=== PATIENT | male | born 1960 | race Asian ===

== ENCOUNTER 2016-08-05 10:57 | Outpatient (CLI) | payer OTHER | END 2016-08-05 10:58 | disposition home or self-care (01) | DX: E11.9 Type 2 diabetes mellitus without complications (principal); E78.5 Hyperlipidemia, unspecified; Z79.899 Other long term (current) drug therapy ==

== ENCOUNTER 2017-10-18 08:00 | Outpatient (CLI) | payer OTHER ==
[2017-10-18 16:41] LABS: BASOPHILS % (AUTO) 0.9 %; EOSINOPHILS % (AUTO) 2.6 %; HGB - HEMOGLOBIN 13.5 g/dL (14.0-18.0); LYMPHOCYTES % (AUTO) 20.3 %; MEAN CORPUSCULAR HEMOGLOBIN 32.8 pg (27.0-31.0); MEAN CORPUSCULAR HGB CONC 33.9 g/dL (32.0-36.0); MEAN CORPUSCULAR VOLUME 96.7 fL (80.0-94.0); MEAN PLATELET VOLUME 9.2 fL (7.4-11.4); MONOCYTES % (AUTO) 7.8 %; NEUTROPHILS % (AUTO) 68.4 %; PLT - PLATELET COUNT 158 10^3/uL (130-450); RED BLOOD COUNT 4.11 10^6/uL (4.70-6.10); RED CELL DISTRIBUTION WIDTH 13.5 % (12.0-15.0); WHITE BLOOD COUNT 7.2 x10^3/uL (4.8-10.8)
[2017-10-18 16:54] LABS: ABNORMAL LYMPHS % (MANUAL) 0 %; BAND NEUTROPHILS % (MANUAL) 0 %
[2017-10-18 17:10] LABS: PSA SCREEN (Z12.5) 5.21 ng/mL (0.000-2.000)
[2017-10-18 17:16] LABS: ALBUMIN 4.6 g/dL (3.2-5.5); ALBUMIN/GLOBULIN RATIO 1.5 (1.0-2.2); ALKALINE PHOSPHATASE 86 IU/L (42-121); ALT ALANINE AMINOTRANSFERASE 72 IU/L (10-60); AST ASPARTATE AMINOTRANSFERASE 118 IU/L (10-42); BILIRUBIN,TOTAL 1.3 mg/dL (0.2-1.0); BUN - BLOOD UREA NITROGEN 13 mg/dL (6-20); CALCIUM 9.4 mg/dL (8.5-10.3); CARBON DIOXIDE - CO2 23 mmol/L (21-32); CHLORIDE 99 mmol/L (101-111); CHOL/HDL RATIO 6.1 (<5.0); CHOLESTEROL 291 mg/dL; CREATININE 1.1 mg/dL (0.6-1.2); GFR - MDRD 69 (>89); GLUCOSE 156 mg/dL (70-100); HB2 TOTAL 15.3 g/dL; HDL CHOLESTEROL 48 mg/dL; HEMOGLOBIN A1C 0.67 g/dL; HEMOGLOBIN A1C % 6.2 % (4.6-6.2); SODIUM 135 mmol/L (135-145); TOTAL PROTEIN 7.7 g/dL (6.7-8.2)
[2017-10-18 17:37] LABS: LDL CHOLESTEROL,DIRECT 114 mg/dL; LDLD/HDL RATIO 2.4 (<3.6)
[2017-10-18 18:58] LABS: BASOPHILS # (MANUAL) 0.1 10^3/uL (0-0.1); BASOPHILS % (MANUAL) 1 %; EOSINOPHILS # (MANUAL) 0.2 10^3/uL (0-0.7); LYMPHOCYTES # (MANUAL) 0.9 10^3/uL (1.5-3.5); LYMPHOCYTES % (MANUAL) 13 %; MONOCYTES # (MANUAL) 1.4 10^3/uL (0.0-1.0); NEUTROPHILS # (MANUAL) 4.6 10^3/uL (1.5-6.6); NEUTROPHILS % (MANUAL) 64 %
[2017-10-18 19:00] LABS: PLATELET ESTIMATE, MANUAL NORMAL (130-450,000) (NORMAL); PLATELET MORPHOLOGY NORMAL APPEARANCE (NORMAL); RBC MORPHOLOGY (MULTIPLE) NORMAL APPEARANCE (NORMAL)
[2017-10-19 16:49] LABS: HEPATITIS C ANTIBODY NON-REACTIVE (NON-REACTIVE)
[2017-10-20 10:02] LABS: PSA TOTAL 5.671 ng/mL (0.000-2.000)
== END 2017-10-18 08:01 | disposition home or self-care (01) ==
LOC: LAB.R 08:00
PROVIDERS: ATTEND Physician Assistant Medical
DX: Z12.5 Encounter for screening for malignant neoplasm of prostate (principal); I10 Essential (primary) hypertension; E78.2 Mixed hyperlipidemia; E11.65 Type 2 diabetes mellitus with hyperglycemia; Z79.899 Other long term (current) drug therapy; Z13.818 Encounter for screening for other digestive system disorders; Z72.89 Other problems related to lifestyle
CPT/HCPCS: 80053; 80061; 83036; 83721; 84153; 84154; 84443; 85025; 86803

== ENCOUNTER 2017-11-01 08:00 | Outpatient (CLI) | payer OTHER ==
[2017-11-01 13:22] LABS: MEAN RETIC VALUE 105.8; RED BLOOD COUNT 4.07 10^6/uL (4.70-6.10)
== END 2017-11-01 08:01 | disposition home or self-care (01) ==
LOC: LAB.R 08:00
PROVIDERS: ATTEND Physician Assistant Medical
DX: D75.89 Other specified diseases of blood and blood-forming organs (principal)
CPT/HCPCS: 82607; 82728; 83010; 85044; 86880

== ENCOUNTER 2017-11-06 08:00 | Outpatient (CLI) | payer OTHER ==
[2017-11-06 14:50] LABS: IRON 158 ug/dL (45-182); TRANSFERRIN 238 mg/dL (180-329)
== END 2017-11-06 08:01 | disposition home or self-care (01) ==
LOC: LAB.R 08:00
PROVIDERS: ATTEND Physician Assistant Medical
DX: Z00.01 Encounter for general adult medical examination with abnormal findings (principal); R79.89 Other specified abnormal findings of blood chemistry
CPT/HCPCS: 82728; 83540; 84466

== ENCOUNTER 2017-11-06 09:40 | Outpatient (CLI) | payer OTHER ==
--- NOTE | 2017-11-06 11:29 | XRAY Report ---
THREE VIEW LUMBAR SPINE: 11/06/2017 CLINICAL INDICATION: Back pain. FINDINGS: AP, lateral, coned down views of the lumbar spine demonstrate mild degenerative changes of the disks and facets. There is no evidence of compression fracture or subluxation. The bowel gas pattern is normal. IMPRESSION: MILD DEGENERATIVE CHANGES. TD: 11/06/2017 10:37
== END 2017-11-06 09:41 | disposition home or self-care (01) ==
LOC: DI 09:40
PROVIDERS: ATTEND Physician Assistant Medical
DX: M51.36 Other intervertebral disc degeneration, lumbar region (principal); M47.896 Other spondylosis, lumbar region; R79.89 Other specified abnormal findings of blood chemistry; Z00.01 Encounter for general adult medical examination with abnormal findings
CPT/HCPCS: 72100; 82728; 83540; 84466

== ENCOUNTER 2018-01-11 11:45 | Outpatient (CLI) | payer OTHER ==
[2018-01-11 13:25] LABS: PSA FREE 0.55 ng/mL (0.16-2.81); PSA TOTAL 1.73 ng/mL (0.000-2.000)
== END 2018-01-11 11:46 | disposition home or self-care (01) ==
LOC: LAB.R 11:45
PROVIDERS: ATTEND Urology
DX: R97.20 Elevated prostate specific antigen [PSA] (principal)
CPT/HCPCS: 84154

== ENCOUNTER 2018-06-12 08:00 | Outpatient (CLI) | payer OTHER ==
[2018-06-12 12:09] LABS: ALBUMIN 4.2 g/dL (3.2-5.5); ALBUMIN/GLOBULIN RATIO 1.2 (1.0-2.2); ALKALINE PHOSPHATASE 76 IU/L (42-121); ALT ALANINE AMINOTRANSFERASE 53 IU/L (10-60); AST ASPARTATE AMINOTRANSFERASE 95 IU/L (10-42); BILIRUBIN,TOTAL 0.6 mg/dL (0.2-1.0); BUN - BLOOD UREA NITROGEN 11 mg/dL (6-20); CALCIUM 9.5 mg/dL (8.5-10.3); CARBON DIOXIDE - CO2 27 mmol/L (21-32); CHLORIDE 100 mmol/L (101-111); CHOL/HDL RATIO 4.7 (<5.0); CHOLESTEROL 281 mg/dL; CREATININE 0.9 mg/dL (0.6-1.2); GFR - MDRD 87 (>89); GLUCOSE 140 mg/dL (70-100); HDL CHOLESTEROL 60 mg/dL; LDL CHOLESTEROL,CALCULATED 160 mg/dL; LDL/HDL RATIO 2.7 (<3.6); SODIUM 138 mmol/L (135-145); TOTAL PROTEIN 7.8 g/dL (6.7-8.2); VLDL CHOLESTEROL 61 mg/dL
[2018-06-12 15:25] LABS: HB2 TOTAL 17.3 g/dL; HEMOGLOBIN A1C % 7.4 % (4.6-6.2)
== END 2018-06-12 23:59 | disposition home or self-care (01) ==
LOC: LAB.R 08:00
PROVIDERS: ATTEND Physician Assistant Medical
DX: E11.65 Type 2 diabetes mellitus with hyperglycemia (principal); I10 Essential (primary) hypertension; E78.2 Mixed hyperlipidemia; Z79.899 Other long term (current) drug therapy
CPT/HCPCS: 80053; 80061; 83036; 83721

== ENCOUNTER 2018-07-11 10:54 | Outpatient (CLI) | payer OTHER ==
[2018-07-11 11:13] LABS: BASOPHILS % (AUTO) 1.4 %; EOSINOPHILS % (AUTO) 2.8 %; HGB - HEMOGLOBIN 16.4 g/dL (14.0-18.0); MEAN CORPUSCULAR HEMOGLOBIN 33.5 pg (27.0-31.0); MEAN CORPUSCULAR HGB CONC 34.3 g/dL (32.0-36.0); MEAN CORPUSCULAR VOLUME 97.6 fL (80.0-94.0); MEAN PLATELET VOLUME 8.8 fL (7.4-11.4); MONOCYTES % (AUTO) 7.2 %; NEUTROPHILS % (AUTO) 78.6 %; PLT - PLATELET COUNT 278 10^3/uL (130-450); RED CELL DISTRIBUTION WIDTH 12.6 % (12.0-15.0); WHITE BLOOD COUNT 12.5 x10^3/uL (4.8-10.8)
[2018-07-11 11:17] LABS: ABNORMAL LYMPHS % (MANUAL) 0 %
[2018-07-11 11:29] LABS: ALBUMIN 4.5 g/dL (3.2-5.5); ALBUMIN/GLOBULIN RATIO 1.2 (1.0-2.2); BILIRUBIN,TOTAL 1.4 mg/dL (0.2-1.0); CALCIUM 10.3 mg/dL (8.5-10.3); CREATININE 1.9 mg/dL (0.6-1.2); TOTAL PROTEIN 8.3 g/dL (6.7-8.2)
[2018-07-11 11:42] LABS: BAND NEUTROPHILS % (MANUAL) 5 %; BASOPHILS # (MANUAL) 0.1 10^3/uL (0-0.1); BASOPHILS % (MANUAL) 1 %; DIFFERENTIAL COMMENT MANUAL DIFFERENTIAL; EOSINOPHILS # (MANUAL) 0.3 10^3/uL (0-0.7); LYMPHOCYTES # (MANUAL) 1.9 10^3/uL (1.5-3.5); LYMPHOCYTES % (MANUAL) 13 %; MONOCYTES # (MANUAL) 1.1 10^3/uL (0.0-1.0); NEUTROPHILS # (MANUAL) 9.1 10^3/uL (1.5-6.6); NEUTROPHILS % (MANUAL) 68 %
== END 2018-07-11 23:59 | disposition home or self-care (01) ==
LOC: LAB.R 10:54
PROVIDERS: ATTEND Physician Assistant Medical
DX: R00.0 Tachycardia, unspecified (principal)
CPT/HCPCS: 80053; 84443; 84484; 85025

== ENCOUNTER 2018-07-12 15:03 | Outpatient (CLI) | payer OTHER ==
[2018-07-12 15:26] LABS: BASOPHILS % (AUTO) 1.5 %; EOSINOPHILS % (AUTO) 3.7 %; HGB - HEMOGLOBIN 15.4 g/dL (14.0-18.0); LYMPHOCYTES % (AUTO) 11.1 %; MEAN CORPUSCULAR HEMOGLOBIN 33.7 pg (27.0-31.0); MEAN CORPUSCULAR HGB CONC 34.5 g/dL (32.0-36.0); MEAN CORPUSCULAR VOLUME 97.6 fL (80.0-94.0); MEAN PLATELET VOLUME 8.4 fL (7.4-11.4); MONOCYTES % (AUTO) 7.7 %; PLT - PLATELET COUNT 258 10^3/uL (130-450); RED BLOOD COUNT 4.57 10^6/uL (4.70-6.10); RED CELL DISTRIBUTION WIDTH 12.3 % (12.0-15.0); WHITE BLOOD COUNT 8.5 x10^3/uL (4.8-10.8)
[2018-07-12 15:28] LABS: ABNORMAL LYMPHS % (MANUAL) 0 %
[2018-07-12 15:33] LABS: ALBUMIN 4.2 g/dL (3.2-5.5); ALBUMIN/GLOBULIN RATIO 1.1 (1.0-2.2); BILIRUBIN,TOTAL 0.9 mg/dL (0.2-1.0); CALCIUM 10.2 mg/dL (8.5-10.3); CREATININE 1.3 mg/dL (0.6-1.2); TOTAL PROTEIN 8.2 g/dL (6.7-8.2)
[2018-07-12 16:14] LABS: BAND NEUTROPHILS % (MANUAL) 2 %; EOSINOPHILS # (MANUAL) 0.2 10^3/uL (0-0.7); LYMPHOCYTES # (MANUAL) 1.5 10^3/uL (1.5-3.5); LYMPHOCYTES % (MANUAL) 14 %; MONOCYTES # (MANUAL) 0.5 10^3/uL (0.0-1.0); NEUTROPHILS # (MANUAL) 6.3 10^3/uL (1.5-6.6); NEUTROPHILS % (MANUAL) 72 %
[2018-07-12 16:15] LABS: DIFFERENTIAL COMMENT MANUAL DIFFERENTIAL; PLATELET ESTIMATE, MANUAL NORMAL (130-450,000) (NORMAL); PLATELET MORPHOLOGY NORMAL APPEARANCE (NORMAL); RBC MORPHOLOGY (MULTIPLE) NORMAL APPEARANCE (NORMAL)
== END 2018-07-12 15:04 | disposition home or self-care (01) ==
LOC: LAB 15:03
PROVIDERS: ATTEND Physician Assistant Medical
DX: Z00.01 Encounter for general adult medical examination with abnormal findings (principal); R79.89 Other specified abnormal findings of blood chemistry; Z79.899 Other long term (current) drug therapy; I10 Essential (primary) hypertension
CPT/HCPCS: 36415; 80053; 85025

== ENCOUNTER 2018-07-14 09:14 | Outpatient (CLI) | payer OTHER | END 2018-07-14 09:15 | disposition home or self-care (01) | LOC: DI 09:14 | PROVIDERS: ATTEND Internal Medicine | DX: R00.0 Tachycardia, unspecified (principal); I10 Essential (primary) hypertension | CPT/HCPCS: 93306 ==

== ENCOUNTER 2018-07-18 13:49 | Outpatient (CLI) | payer OTHER ==
[2018-07-18 14:10] LABS: BASOPHILS % (AUTO) 0.5 %; EOSINOPHILS # (AUTO) 0.2 10^3/uL (0.0-0.7); HGB - HEMOGLOBIN 15.8 g/dL (14.0-18.0); LYMPHOCYTES # (AUTO) 0.9 10^3/uL (1.5-3.5); LYMPHOCYTES % (AUTO) 16.1 %; MEAN CORPUSCULAR HEMOGLOBIN 33.5 pg (27.0-31.0); MEAN CORPUSCULAR HGB CONC 34.4 g/dL (32.0-36.0); MEAN CORPUSCULAR VOLUME 97.5 fL (80.0-94.0); MEAN PLATELET VOLUME 8.3 fL (7.4-11.4); MONOCYTES # (AUTO) 0.4 10^3/uL (0.0-1.0); NEUTROPHILS # (AUTO) 4.2 10^3/uL (1.5-6.6); NEUTROPHILS % (AUTO) 72.4 %; PLT - PLATELET COUNT 264 10^3/uL (130-450); RED CELL DISTRIBUTION WIDTH 12.3 % (12.0-15.0); WHITE BLOOD COUNT 5.8 x10^3/uL (4.8-10.8)
[2018-07-18 14:17] LABS: ALBUMIN 4.3 g/dL (3.2-5.5); ALBUMIN/GLOBULIN RATIO 1.2 (1.0-2.2); BILIRUBIN,TOTAL 0.9 mg/dL (0.2-1.0); CALCIUM 9.4 mg/dL (8.5-10.3)
== END 2018-07-18 13:50 | disposition home or self-care (01) ==
LOC: LAB 13:49
PROVIDERS: ATTEND Internal Medicine
DX: N17.9 Acute kidney failure, unspecified (principal); R79.89 Other specified abnormal findings of blood chemistry
CPT/HCPCS: 36415; 80053; 85025

== ENCOUNTER 2018-07-28 18:09 | Outpatient (CLI) | payer OTHER | END 2018-07-28 18:10 | disposition critical access hospital (66) | LOC: EMS 18:09 | PROVIDERS: ATTEND Surgery | DX: R07.9 Chest pain, unspecified (principal) | CPT/HCPCS: A0425; A0427 ==

== ENCOUNTER 2018-07-28 18:27 | Emergency (ER) | payer OTHER ==
[2018-07-28 18:59] LABS: BASOPHILS # (AUTO) 0.1 10^3/uL (0.0-0.1); BASOPHILS % (AUTO) 1.4 %; EOSINOPHILS # (AUTO) 0.2 10^3/uL (0.0-0.7); LYMPHOCYTES # (AUTO) 1.7 10^3/uL (1.5-3.5); LYMPHOCYTES % (AUTO) 21.6 %; MEAN CORPUSCULAR HEMOGLOBIN 32.8 pg (27.0-31.0); MEAN CORPUSCULAR VOLUME 96.2 fL (80.0-94.0); MEAN PLATELET VOLUME 8.5 fL (7.4-11.4); MONOCYTES % (AUTO) 12.3 %; NEUTROPHILS # (AUTO) 4.9 10^3/uL (1.5-6.6); NEUTROPHILS % (AUTO) 61.7 %; PLT - PLATELET COUNT 157 10^3/uL (130-450); RED BLOOD COUNT 4.28 10^6/uL (4.70-6.10); RED CELL DISTRIBUTION WIDTH 12.4 % (12.0-15.0)
[2018-07-28 19:13] LABS: ALBUMIN 4.3 g/dL (3.2-5.5); ALBUMIN/GLOBULIN RATIO 1.2 (1.0-2.2); BILIRUBIN,TOTAL 0.8 mg/dL (0.2-1.0); CALCIUM 9.2 mg/dL (8.5-10.3); CREATININE 0.9 mg/dL (0.6-1.2); TOTAL PROTEIN 7.9 g/dL (6.7-8.2)
--- NOTE | 2018-07-28 19:35 | XRAY Report ---
Reason: Chest Pain Procedure Date: 07/28/2018 Accession Number: [id number] / [id number] Procedure: XR - Chest 1 View X-Ray CPT Code: 43777 FULL RESULT: EXAM: CHEST RADIOGRAPHY EXAM DATE: 07/28/2018 07:10 PM. CLINICAL HISTORY: Chest Pain. COMPARISON: CHEST 2 VIEW PA/LAT 05/07/2015 12:05 AM. TECHNIQUE: 1 view. FINDINGS: Lungs/Pleura: New right upper to midlung nodular opacity measuring 6 mm. No consolidation, airspace disease, pleural effusion or pneumothorax. Mediastinum: Within exam limitations, the cardiomediastinal contour is normal. IMPRESSION: No acute findings. New right upper to midlung nodular opacity measuring 6 mm, could represent a pulmonary nodule. Follow-up is recommended. A chest CT could further evaluate. RADIA
--- NOTE | 2018-07-28 19:39 | ED Physician Documentation ---
PD HPI CHEST PAIN - Stated complaint Stated Complaint: CHEST DISCOMFORT - Chief complaint Chief Complaint: Cardiac - History obtained from History obtained from: Patient, EMS - History of Present Illness Timing - onset: How many months ago (5) Timing - onset during: Rest Timing - duration: Months (5) Timing - details: Gradual onset Pain level max: 1 Pain level now: 0 Quality: Pressure, Tightness Location: Substernal Radiation: No: Jaw, Neck, Back, Abdominal, Left upper extremity, Right upper extremity Improved by: No: Rest, Oxygen, Nitro, ASA, Antacids, Other medication, Nothing Worsened by: No: Exertion, Inspiration, Eating, Movement, Palpation, Position Associated symptoms: No: Shortness of air, Diaphoresis, Nausea, Vomiting, Feeling faint / dizzy, General Weakness, Palpitations, Cough Recently seen: Other (normal echocardiogram 2 weeks ago) Review of Systems Ten Systems: 10 systems reviewed and negative Constitutional: denies: Fever, Chills Ears: denies: Ear pain Nose: denies: Rhinorrhea / runny nose, Congestion Throat: denies: Sore throat Cardiac: denies: Palpitations, Calf pain Respiratory: denies: Cough GI: denies: Nausea, Vomiting, Diarrhea Skin: denies: Rash Musculoskeletal: denies: Neck pain, Back pain Neurologic: denies: Headache PD PAST MEDICAL HISTORY - Past Medical History Past Medical History: Yes Cardiovascular: High cholesterol, Hypertension Respiratory: None Neuro: None Endocrine/Autoimmune: Type 2 diabetes GI: None : None HEENT: None Psych: None Musculoskeletal: None Derm: None - Past Surgical History Past Surgical History: No - Present Medications Home Medications: Ambulatory Orders Medication Instructions Recorded Confirmed Lisinopril 40 mg PO DAILY 12/01/14 07/28/18 Metformin HCl 500 mg PO BID 12/01/14 07/28/18 Amlodipine Besylate 5 mg PO DAILY 05/06/15 07/28/18 - Allergies Allergies/Adverse Reactions: Allergies Allergy/AdvReac Type Severity Reaction Status Date / Time No Known Drug Allergies Allergy Verified 07/28/18 18:35 - Social History Does the pt smoke?: No Smoking Status: Never smoker Does the pt drink ETOH?: Yes Does the pt have substance abuse?: No - Immunizations Immunizations are current?: Yes - POLST Patient has POLST: No PD ED PE NORMAL - Vitals Vital signs reviewed: Yes - General General: Alert and oriented X 3, No acute distress - HEENT HEENT: Moist mucous membranes - Neck Neck: Supple, no meningeal sign - Cardiac Cardiac: RRR, No murmur, Strong equal pulses - Respiratory Respiratory: No respiratory distress, Clear bilaterally - Abdomen Abdomen: Soft, Non tender, Non distended - Derm Derm: Warm and dry, No rash - Extremities Extremities: No edema - Neuro Neuro: Alert and oriented X 3 - Psych Psych: Normal mood, Normal affect Results - Vitals Vitals: Vital Signs - 24 hr 07/28/18 07/28/18 18:31 19:48 Temperature 37.0 C Heart Rate 99 98 Respiratory 16 16 Rate Blood Pressure 145/98 H 133/103 H O2 Saturation 96 96 Oxygen O2 Source Room air - EKG (time done) 1838 Rate: Rate (enter#) (95) Rhythm: NSR [place]: Normal Intervals: Normal [place] QRS: Normal Ischemia: Normal ST segments Computer interpretation: Agree with computer - Labs Labs: Laboratory Tests 07/28/18 07/28/18 07/28/18 18:45 18:45 18:45 WBC 8.0 RBC 4.28 L Hgb 14.0 Hct 41.2 L MCV 96.2 H MCH 32.8 H MCHC 34.0 RDW 12.4 Plt Count 157 MPV 8.5 Neut # (Auto) 4.9 Lymph # (Auto) 1.7 [place] # (Auto) 1.0 Eos # (Auto) 0.2 Baso # (Auto) 0.1 Absolute Nucleated RBC 0.00 Nucleated RBC % 0.0 Sodium 139 Potassium 3.6 Chloride 103 Carbon Dioxide 24 Anion Gap 12.0 BUN 15 Creatinine 0.9 Estimated GFR (MDRD) 87 L Glucose 189 H Calcium 9.2 Total Bilirubin 0.8 AST 73 H ALT 55 Alkaline Phosphatase 86 Troponin I < 0.04 Total Protein 7.9 Albumin 4.3 Globulin 3.6 Albumin/Globulin Ratio 1.2 Lipase 155 H - Rads (name of study) cxr Radiology: Prelim report reviewed, EMP read contemporaneously, See rad report (No acute findings. New right upper to midlung nodular opacity measuring 6 mm, could represent a pulmonary nodule. Follow-up is recommended. A chest CT could further evaluate. ) PD MEDICAL DECISION MAKING - ED course Complexity details: reviewed results, re-evaluated patient, considered differential (No ST elevation [place], no aortic dissection, no PE, no tension pneumothorax, no aortic aneurysm), d/w patient ED course: 58-year-old male presents to the emergency department with what appears to be depression manifesting as chest discomfort. Normal EKG. Negative troponin. Normal echocardiogram within the last 2 weeks. Does have a possible pulmonary nodule on chest x-ray. Will have him follow-up with his doctor for further evaluation of this. He feels much better after talking about his 's recent cardiac events as well as his residential. He was tearful in the emergency dep artment. Recommend that he follow-up with his doctor to be referred to a therapist. Patient is comfortable with this plan. Patient counseled regarding signs and symptoms for which I believe and urgent re-evaluation would be necessary. Patient with good understanding of and agreement to plan and is comfortable going home at this time This document was made in part using voice recognition software. While efforts are made to proofread this document, sound alike and grammatical errors may occur. Departure - Departure Disposition: 01 Home, Self Care Clinical Impression: Chest pain Qualifiers: Chest pain type: unspecified Qualified Code(s): R07.9 - Chest pain, unspecified Depression Qualifiers: Depression Type: unspecified Qualified Code(s): F32.9 - Major depressive disor madeline, single episode, unspecified Condition: Good Instructions: ED Chest Pain Atypical Unkn Cause, ED Depression Follow-Up: Paco Hernandez MD [Primary Care Provider] - Within 1 week Comments: Follow-up with your doctor for further evaluation and care. Return if you worsen. You should have a cardiac stress test with your doctor. You should also speak with your doctor about a referral to a therapist. Follow up with your doctor about the pulmonary nodule on your xray next week. New right upper to midlung nodular opacity measuring 6 mm, could represent a pulmonary nodule. Follow-up is recommended. A chest CT could further evaluate. Crisis Line and is available to talk to someone [email or web address] is also available to chat with someone online if you prefer. There are also many resources on this website and apps for your phone to help with your mental health You can also text the word START to [phone] to chat with someome via text. Discharge Date/Time: 07/28/18 19:49
[2018-07-28 19:50] VITALS: BP 133/103
== END 2018-07-28 19:49 | disposition home or self-care (01) ==
LOC: EDUNIT# → ED 18:27
DX: R07.9 Chest pain, unspecified (principal); E11.9 Type 2 diabetes mellitus without complications; Z79.84 Long term (current) use of oral hypoglycemic drugs; I10 Essential (primary) hypertension; E78.00 Pure hypercholesterolemia, unspecified
CPT/HCPCS: 36415; 71045; 80053; 83690; 84484; 85025; 93005; 99283

== ENCOUNTER 2020-03-05 08:34 | Outpatient (CLI) | payer OTHER ==
[2020-03-05 12:05] LABS: ALBUMIN 4.2 g/dL (3.2-5.5); ALBUMIN/GLOBULIN RATIO 1.2 (1.0-2.2); ALKALINE PHOSPHATASE 72 IU/L (42-121); ALT ALANINE AMINOTRANSFERASE 47 IU/L (10-60); AST ASPARTATE AMINOTRANSFERASE 64 IU/L (10-42); BILIRUBIN,TOTAL 0.7 mg/dL (0.2-1.0); BUN - BLOOD UREA NITROGEN 15 mg/dL (6-20); CALCIUM 9.5 mg/dL (8.5-10.3); CARBON DIOXIDE - CO2 25 mmol/L (21-32); CHLORIDE 102 mmol/L (101-111); CHOL/HDL RATIO 7.8 (<5.0); CHOLESTEROL 389 mg/dL; CREATININE 0.7 mg/dL (0.6-1.2); GLUCOSE 162 mg/dL (70-100); HDL CHOLESTEROL 50 mg/dL; SODIUM 140 mmol/L (135-145); TOTAL PROTEIN 7.8 g/dL (6.7-8.2)
[2020-03-05 12:28] LABS: LDL CHOLESTEROL,DIRECT 191 mg/dL; LDLD/HDL RATIO 3.8 (<3.6)
[2020-03-05 12:36] LABS: HEMOGLOBIN A1c% 7.2 % (4.27-6.07)
[2020-03-05 12:41] LABS: CREATININE,URINE 71.6 mg/dL; MICROALBUM/CREATININE RATIO,UR 238.8 ug/mg (<30.0); MICROALBUMIN,URINE 17.1 mg/dL (0-300.0)
== END 2020-03-05 23:59 | disposition home or self-care (01) ==
LOC: LAB.WCP 08:34
PROVIDERS: ATTEND Family Medicine
DX: R00.0 Tachycardia, unspecified (principal); I10 Essential (primary) hypertension; E78.2 Mixed hyperlipidemia; E11.65 Type 2 diabetes mellitus with hyperglycemia
CPT/HCPCS: 36415; 80053; 80061; 82043; 82570; 83036; 83721; 84443

== ENCOUNTER 2020-08-27 08:00 | Outpatient (CLI) | payer OTHER ==
[2020-08-27 17:58] LABS: CALCIUM 9.5 mg/dL (8.5-10.3); CREATININE 1.7 mg/dL (0.6-1.2); POTASSIUM 4.1 mmol/L (3.5-5.0)
[2020-08-27 18:08] LABS: CREATININE,URINE 191.6 mg/dL; MICROALBUM/CREATININE RATIO,UR 56.9 ug/mg (<30.0); MICROALBUMIN,URINE 10.9 mg/dL (0-300.0)
[2020-08-27 20:13] LABS: ESTIMATED AVERAGE GLUCOSE 143 mg/dL (70-100); HEMOGLOBIN A1c% 6.6 % (4.27-6.07)
== END 2020-08-27 23:59 | disposition home or self-care (01) ==
LOC: LAB.WCP 08:00
PROVIDERS: ATTEND Family Medicine
DX: E11.65 Type 2 diabetes mellitus with hyperglycemia (principal); I10 Essential (primary) hypertension
CPT/HCPCS: 36415; 80048; 82043; 82570; 83036

== ENCOUNTER 2020-10-20 17:34 | Emergency (ER) | payer OTHER ==
--- OUTSIDE RECORDS SUMMARY | 2020-10-20 17:46 | EXTERNAL MEDICAL SUMMARY RPT | Continuity of Care Document ---
:1960 Demographics Phone Unavailable Preferred Language Unknown Marital Status Unknown Jew Affiliation Unknown Race Unknown Ethnic Group Unknown Author Organization [place] Address [address] [place] [address] Phone Allergies Encounters Medications Problems Results
[2020-10-20 17:50] VITALS: BP 98/72
--- NOTE | 2020-10-20 18:00 | ED Physician Documentation ---
PD HPI UPPER EXT INJURY - Stated complaint Stated Complaint: RT ARM INJ - Chief complaint Chief Complaint: Trauma Ext - History obtained from History obtained from: Patient - History of Present Illness Location: Right, Shoulder, Wrist Type of injury: Fall (stumbled and fell) Where injury occurred: Home Timing - onset: Today Timing - details: Abrupt onset Worsened by: Moving, Palpating Associated symptoms: Swelling. No: Weakness, Numbness Contributing factors: No: Anticoagulated Similar symptoms before: Has not had sx before Recently seen: Not recently seen Review of Systems Constitutional: denies: Fever, Chills Nose: denies: Rhinorrhea / runny nose, Congestion Throat: denies: Sore throat Respiratory: denies: Cough GI: denies: Abdominal Pain, Nausea, Vomiting Neurologic: denies: Generalized weakness, Focal weakness, Numbness PD PAST MEDICAL HISTORY - Past Medical History Cardiovascular: High cholesterol, Hypertension Respiratory: None Neuro: None Endocrine/Autoimmune: Type 2 diabetes GI: None : None HEENT: None Psych: None Musculoskeletal: None Derm: None - Past Surgical History Past Surgical History: No - Present Medications Home Medications: Ambulatory Orders Medication Instructions Recorded Confirmed Lisinopril 40 mg PO DAILY 12/01/14 10/20/20 Metformin HCl 500 mg PO BID 12/01/14 10/20/20 Amlodipine Besylate 5 mg PO DAILY 05/06/15 10/20/20 HYDROcod/ACETAM 5/325 [[place] 5/325] 1 ea PO Q6H PRN #15 tablet 10/20/20 Naproxen Sodium [Aleve] 220 mg PO BID 10/20/20 10/20/20 - Allergies Allergies/Adverse Reactions: Allergies Allergy/AdvReac Type Severity Reaction Status Date / Time No Known Drug Allergies Allergy Verified 10/20/20 17:44 - Social History Does the pt smoke?: No Smoking Status: Never smoker Does the pt drink ETOH?: Yes Does the pt have substance abuse?: No - Immunizations Immunizations are current?: Yes - POLST Patient has POLST: No PD ED PE NORMAL - Vitals Vital signs reviewed: Yes - General General: Alert and oriented X 3, No acute distress, Well developed/nourished - HEENT HEENT: Atraumatic - Neck Neck: Supple, no meningeal sign, No bony TTP - Cardiac Cardiac: RRR, No murmur - Respiratory Respiratory: Clear bilaterally, Other (No chestwall tenderness) - Abdomen Abdomen: Soft, Non tender - Derm Derm: Normal color, Warm and dry - Extremities Extremities: Other (The right shoulder shows some tenderness posteriorly without any deformity or dislocation. Passive range of motion without any pain. Elbow is nontender. The right wrist shows swelling on the dorsal radial aspect. No snuffbox tenderness. There is some mild bony deformity palpable posterior radial end) - Neuro Neuro: Alert and oriented X 3, No motor deficit, Normal speech Results - Vitals Vitals: Vital Signs - 24 hr 10/20/20 17:45 Temperature 36.5 C Heart Rate 83 Respiratory 16 Rate Blood Pressure 98/72 O2 Saturation 97 Oxygen O2 Source Room air - Rads (name of study) rigth shoulder Radiology: Prelim report reviewed (no fractures), See rad report right wrist Radiology: Prelim report reviewed (distal radius fracture without displacement, and with about 10 degrees dorsal angulation. ), See rad report Procedures - Splint (location) right wrist Splint applied by: Tech Type of splint: Fiberglass, Sugar tong Other: Patient tolerated well, No complications, Neurovascular intact, Sling provided PD MEDICAL DECISION MAKING - ED course Complexity details: reviewed results (shoulder okay on xray. Wrist with slightly angulated distal radius fracture. ), considered differential (Clinically c/w wrist fracture. Will get xray.), d/w patient Departure - Departure Disposition: 01 Home, Self Care Clinical Impression: Fall from slip, trip, or stumble Qualifiers: Encounter type: initial encounter Qualified Code(s): W01.0XXA - Fall on same level from slipping, tripping and stumbling without subsequent striking against object, initial encounter Distal radius fracture, right Qualifiers: Encounter type: initial encounter Fracture type: closed Fracture morphology: Colles' Qualified Code(s): S52.531A - Colles' fracture of right radius, initial encounter for closed fracture Right shoulder strain Qualifiers: Encounter type: initial encounter Qualified Code(s): S46.911A - Strain of unspecified muscle, fascia and tendon at shoulder and upper arm level, right arm, initial encounter Condition: Stable Record reviewed to determine appropriate education?: Yes Instructions: ED Fx Colles Wrist No Redu Requ Follow-Up: Jeramie Collado MD [Provider Admit Priv/Credential] - Joesph Willams MD [Primary Care Provider] - Prescriptions: HYDROcod/ACETAM 5/325 [[place] 5/325] 1 ea PO Q6H PRN #15 tablet PRN Reason: Pain Comments: Three-view shoulder appears normal. Likely you have some injury of the shoulder muscles and ligaments as he fell. This should be able to be treated with the sling that you will be using for your supporting the arm and wrist anyway. Gentle range of motion of the shoulder is okay. Your wrist shows a fracture of the end of the radius. It is slightly tilted but I believe is not needing to be reduced right now. We splinted it here and you will want to follow-up with orthopedics the end of this week or early next week for changing the splint to a cast after the swelling has reduced. Elevate ice and rest your wrist often the next several days. You can use the sling for comfort of arm motion and support. Use some anti-inflammatory such as ibuprofen or naproxen twice daily with food and to that add Tylenol every 4-6 hours through the day as needed for pain. You can use hydrocodone as needed for worse pain in the short-term. Typically this is most commonly needed in the first several days only. Call tomorrow for an appointment with orthopedics. Discharge Date/Time: 10/20/20 20:03
[2020-10-20] MEDS ORDERED: KETOROLAC 30 MG/ML VIAL IM STA (18:20)
[2020-10-20] MEDS ORDERED: HYDROcod/ACETAM 5/325 MG TABLET PO STA (18:21)
--- NOTE | 2020-10-20 19:16 | XRAY Report ---
PROCEDURE: Shoulder 3 View RT INDICATIONS: fall with wrist/shoulder injury TECHNIQUE: 3 views of the shoulder were acquired. COMPARISON: None. FINDINGS: Bones: No fractures or dislocations. No suspicious bony lesions. Visualized ribs appear intact. M ild before meals and glenohumeral osteoarthritis There is trace calcific tendinitis. IMPRESSION: Mild shoulder osteoarthritis Trace calcific tendinitis No fracture identified. Reviewed by: Mao Bhatia MD on 10/20/2020 7:15 PM PDT Approved by: Mao Bhatia MD on 10/20/2020 7:15 PM PDT Station ID: [id number]
--- NOTE | 2020-10-20 19:17 | XRAY Report ---
PROCEDURE: Wrist 3 View RT INDICATIONS: fall with wrist/shoulder injury TECHNIQUE: 3 views of the wrist were acquired. COMPARISON: None. FINDINGS: Bones: Mildly impacted transverse fracture of the distal radial metaphysis. There is loss of the norm al volar angulation of the distal radial articular surface. Scattered subchondral sclerosis and spurr ing. Soft tissues: Normal. IMPRESSION: Mildly impacted distal radial fracture. Reviewed by: Mao Bhatia MD on 10/20/2020 7:16 PM PDT Approved by: Mao Bhatia MD on 10/20/2020 7:16 PM PDT Station ID: [id number]
== END 2020-10-20 20:03 | disposition home or self-care (01) ==
LOC: ED 17:34
DX: S52.531A Colles' fracture of right radius, initial encounter for closed fracture (principal); S46.911A Strain of unspecified muscle, fascia and tendon at shoulder and upper arm level, right arm, initial encounter; W10.9XXA Fall (on) (from) unspecified stairs and steps, initial encounter; Y92.009 Unspecified place in unspecified non-institutional (private) residence as the place of occurrence of the external cause; M19.011 Primary osteoarthritis, right shoulder; M75.31 Calcific tendinitis of right shoulder; I10 Essential (primary) hypertension; E11.9 Type 2 diabetes mellitus without complications; Z79.84 Long term (current) use of oral hypoglycemic drugs
CPT/HCPCS: 29125; 73030; 73110; 96372; 99283; A9270

== ENCOUNTER 2020-10-28 09:46 | Day surgery (SDC) | payer OTHER ==
[~2020-10-28 09:46] MED LIST: ceFAZolin 2 GM/50 ML 2 GM/50 ML BAG IV ONE
--- OUTSIDE RECORDS SUMMARY | 2020-10-28 09:49 | EXTERNAL MEDICAL SUMMARY RPT | Continuity of Care Document ---
:1960 Demographics Phone Unavailable Preferred Language Unknown Marital Status Unknown Jew Affiliation Unknown Race Unknown Ethnic Group Unknown Author Organization [facility] Address [address] [id number] Phone Allergies Encounters Medications Problems Results
[2020-10-28] MEDS ORDERED: ROPIVACAINE 0.5% PF 20 ML AMPULE ONE (10:31)
[2020-10-28] MEDS ORDERED: LIDOCAINE-PF 2% 10 ML AMP SUBQ ONE (10:31)
[2020-10-28] MEDS ORDERED: EPINEPHrine 1 MG/ML AMP ONE (10:31)
[2020-10-28] MEDS ORDERED: LIDOCAINE-MPF 2% 5 ML VIAL ONE (10:31)
[2020-10-28] MEDS ORDERED: DEXAMETHASONE 10 MG/ML VIAL ONE (10:31)
[2020-10-28] MEDS ORDERED: fentaNYL 100 MCG/2 ML VIAL IVP PRN (10:33)
[2020-10-28] MEDS ORDERED: METOCLOPRAMIDE 10 MG/2 ML VIAL IVP PRN (10:33)
[2020-10-28] MEDS ORDERED: ONDANSETRON 4 MG/2 ML VIAL IVP PRN (10:33)
[2020-10-28] MEDS ORDERED: NALOXONE 0.4 MG/ML VIAL IVP PRN (10:33)
[2020-10-28] MEDS ORDERED: ePHEDrine 50 MG/ML VIAL IVP PRN (10:33)
[2020-10-28] MEDS ORDERED: ATROPINE ABBOJECT 1 MG/10 ML SYRINGE IVP PRN (10:33)
[2020-10-28] MEDS ORDERED: MORPHINE 2 MG/ML CARPUJECT IVP PRN (10:33)
[2020-10-28] MEDS ORDERED: HYDROmorphone 0.5 MG/0.5 ML SYRINGE IVP PRN (10:33)
--- NOTE | 2020-10-28 10:33 | ANESTHESIA ---
Pre-Anesthesia VS, & Labs - Diagnosis R radius fracture - Procedure R radius pinning Height: 5 ft 8 in - NPO >8 hours Home Medications and Allergies Home Medications: Ambulatory Orders Acetaminophen [Tylenol Extra Strength] 500 mg PO DAILY PRN 10/27/20 Atorvastatin Calcium [Lipitor] 80 mg PO DAILY 10/27/20 Cholecalciferol [Vitamin D3] 1 tab PO DAILY 10/27/20 Metoprolol Succinate [Toprol Xl] 25 mg PO DAILY 10/27/20 oxyCODONE [Roxicodone] 5 mg PO DAILY PRN 10/27/20 Metformin HCl 500 mg PO BID 12/01/14 Naproxen Sodium [Aleve] 220 mg PO BID 10/20/20 Acetaminophen [Tylenol Extra Strength] 500 mg PO DAILY PRN 10/27/20 Atorvastatin Calcium [Lipitor] 80 mg PO DAILY 10/27/20 Cholecalciferol [Vitamin D3] 1 tab PO DAILY 10/27/20 Metoprolol Succinate [Toprol Xl] 25 mg PO DAILY 10/27/20 oxyCODONE [Roxicodone] 5 mg PO DAILY PRN 10/27/20 Allergies/Adverse Reactions: Allergies Allergy/AdvReac Type Severity Reaction Status Date / Time No Known Drug Allergies Allergy Verified 10/20/20 17:44 Anes History & Medical History - Anesthetic History Anesthesia Complications: reports: No previous complications Family history of Anesthesia Complications: Denies Family history of Malignant Hyperthermia: Denies - Medical History Cardiovascular: reports: Hypertension Pulmonary: reports: None Gastrointestinal: reports: None Urinary: reports: None Neuro: reports: None Musculoskeletal: reports: Chronic back pain Endocrine/Autoimmune: reports: Type 2 diabetes Blood Disorders: reports: None Skin: reports: None Smoking Status: Never smoker Exam General: Alert, Oriented x3, Cooperative Dental: WNL Mouth Openin Fingerbreadth Neck Mobility: Normal Mallampati classification: I Thyromental Distance: 4-6 cm Respiratory: Lungs clear Cardiovascular: Regular rate Plan Anesthesia Type: General (GA as backup), MAC, Supraclavicular Block Consent for Procedure(s) Verified and Reviewed: Yes Code Status: Attempt Resuscitation ASA classification: 2-Mild systemic disease Is this case an emergency?: No
[2020-10-28] MEDS ORDERED: MIDAZOLAM 2 MG/2 ML VIAL ONE (10:36)
[2020-10-28] MEDS ORDERED: PROPOFOL 200 MG/20 ML VIAL IVP ONE (10:37)
[2020-10-28] MEDS ORDERED: BUPIVACAINE 0.5%-EPI 1:200000 PF 30 ML VIAL ONE (10:40)
[2020-10-28] MEDS ORDERED: LACTATED RINGERS 1,000 ML IV ONE ×2 (10:42→12:00)
[2020-10-28 10:57] LABS: B. PARAPERTUSSIS- RESP PCR PAN NOT DETECTED; B. PERTUSSIS- RESP PCR PANEL NOT DETECTED; C. PNEUMONIAE- RESP PCR PANEL NOT DETECTED; CORONAVIRUS 229E-RESP PCR NOT DETECTED; CORONAVIRUS HKU1-RESP PCR NOT DETECTED; CORONAVIRUS NL63-RESP PCR NOT DETECTED; CORONAVIRUS OC43-RESP PCR NOT DETECTED; HUMAN METAPNEUMOVIRUS NOT DETECTED; INFLUENZA A- RESP PCR PANEL NOT DETECTED; INFLUENZA B - RESP PCR PANEL NOT DETECTED; M. PNEUMONIAE- RESP PCR PANEL NOT DETECTED; PARAINFLUENZA VIRUS 1 NOT DETECTED; PARAINFLUENZA VIRUS 2 NOT DETECTED; PARAINFLUENZA VIRUS 3 NOT DETECTED; PARAINFLUENZA VIRUS 4 NOT DETECTED; RHINOVIRUS/ENTEROVIRUS NOT DETECTED; RSV- RESP PCR PANEL NOT DETECTED; SARS-CoV-2 -RESP PCR PANEL NOT DETECTED
[2020-10-28] MEDS ORDERED: LACTATED RINGERS 1,000 ML IV SCH (11:00)
--- NOTE | 2020-10-28 11:10 | CONSULTATION NOTE ---
Consultation Report: R Subclavicular block with U/S guidance per surgeon request for post-op pain control. See paper chart for dosing. Pt tolerated well. NAC. VSS.
[2020-10-28] MEDS ORDERED: HYDROcod/ACETAM 10 MG/325 MG TABLET PO PRN (12:20)
[2020-10-28] MEDS ORDERED: KETOROLAC 15 MG/ML VIAL IVP STA (12:20)
[2020-10-28] MEDS ORDERED: HYDROcod/ACETAM 5/325 MG TABLET PO PRN (12:20)
--- NOTE | 2020-10-28 12:25 | OPERATIVE REPORT ---
Operative Report - General Procedure Date: 10/28/20 Planned Procedure: Closed reduction right distal radius and percutaneous pinning Pre-Op Diagnosis: Displaced fracture right distal radius, closed Procedure Performed: Closed reduction, percutaneous pinning right distal radius Post Op Diagnosis: Same as preoperative diagnosis - Procedure Note Primary Surgeon: Jeramie Collado MD Anesthesia Provider: Andrea Meléndez CRNA Anesthesia Technique: Regional block Estimated Blood Loss (mL): 0 Indications: This is a relatively active 60-year-old gentleman with a history of fall onto right wrist, dominant hand with closed displaced fracture right distal radius. His right wrist shows swelling, tenderness, limited motion, skin intact, neurovascular status intact, tendon function intact. Routine radiographs show a comminuted shortened angulated fracture of the right distal radius, mostly extra-articular. Findings: The preoperative x-rays were confirmed at the time of surgery with a closed, displaced fracture of the right distal radius, extra-articular. Complications: None - Other Other Information/Narrative: The patient was brought to the operating room and was placed in a supine p osition with the right arm on a arm extension table. He received a regional block with supplemental sedation. The right upper extremity was prepped and draped in a sterile manner in the usual fashion. The C-arm image intensifier was utilized and covered with a sterile drape. A timeout procedure was performed by the entire operating room team and all were in agreement. Finger traps were applied to all 5 fingers and a traction bow as well. Longitudinal traction was applied, direct manipulation of the fracture site over a sterile bump. The C-arm image intensifier showed good alignment and a percutaneous pinning was performed with 0.062 K wires. The bare area of the radial styloid was engaged and pin was inserted from the styloid across the fracture to achieve bicortical fixation. An additional K wire from the radial styloid was also inserted to provide 2 bicortical K wires from the radial styloid. 2 additional K wires were inserted from the ulnar corner of the distal radius distally and these were then driven from distal to proximal and ulnar to radial. Biplanar and oblique imaging was obtained and there was good alignment of the fixation and fracture. The K wires were cut external to skin and covered with sterile balls. A well-padded short arm fiberglass splint was applied with gauze padding around the K wires. He tolerated the procedure well. No tourniquet was utilized.
[2020-10-28 13:44] VITALS: BP 148/98
--- NOTE | 2020-10-28 14:23 | XRAY Report ---
PROCEDURE: OR C-Arm Procedure INDICATIONS: RT WRIST FX TECHNIQUE: 2 views, immediate postoperative COMPARISON: Wrist plain films 10/20/2020.. FINDINGS: A total of 4 K wires cross the fracture planes at the distal radius, establishing normal alignment at the distal radius fracture. IMPRESSION: Normal alignment established at the distal radius fracture planes after a total of 4 K wire devices w ere utilized to establish anatomic alignment for healing. Reviewed by: Wallace Baires MD on 10/28/2020 1:22 PM SHENG Approved by: Wallace Baires MD on 10/28/2020 1:22 PM SHENG Station ID: [id number]
--- NOTE | 2020-10-28 14:52 | ANESTHESIA POST OP EVALUATION ---
Anesthesia Post Eval - Post Anesthesia Eval Vitals: Last Vital Signs Temp 36.1 C L 10/28/20 12:45 Pulse 87 10/28/20 12:45 Resp 14 10/28/20 12:45 BP 148/98 H 10/28/20 12:45 Pulse Ox 98 10/28/20 12:45 CV Function Including HR & BP: Stable Pain Control: Satisfactory Nausea & Vomiting: Negative Mental Status: Baseline Respiratory Status: Airway Patent Hydration Status: Satisfactory Anesthesia Complications: None
== END 2020-10-28 09:47 | disposition home or self-care (01) ==
LOC: SDS 09:46
PROVIDERS: ATTEND Orthopaedic Surgery
PROC: 0PSH34Z Reposition Right Radius with Internal Fixation Device, Percutaneous Approach (ICD-10-PCS; principal; 2020-10-28 12:00)
DX: S52.531A Colles' fracture of right radius, initial encounter for closed fracture (principal); Z20.822 Contact with and (suspected) exposure to COVID-19
CPT/HCPCS: 0202U; 25606; C1713; J0690; J7120

== ENCOUNTER 2020-12-10 16:35 | Outpatient (CLI) | payer OTHER ==
--- NOTE | 2020-12-10 13:36 | XRAY Report ---
PROCEDURE: Wrist 3 View RT INDICATIONS: COLLES FX OF R RADIUS TECHNIQUE: 3 views of the wrist were acquired. COMPARISON: X-ray right wrist, 3 views, 10/20/2020. FINDINGS: Bones: Open reduction and external fixation of distal radial metaphyseal fracture. Alignment is impr edgardo. No suspicious bony lesions. The wrist is in the plaster cast. Soft tissues: No suspicious soft tissue calcifications. IMPRESSION: Open reduction and external fixation of distal radial metaphyseal fracture. The alignment is improved . Reviewed by: Michael Kennedy MD on 12/10/2020 1:35 PM PDT Approved by: Michael Kennedy MD on 12/10/2020 1:35 PM PDT Station ID: [id number]
== END 2020-12-10 23:59 | disposition home or self-care (01) ==
LOC: DI.N 16:35
PROVIDERS: ATTEND Orthopaedic Surgery
DX: S52.531A Colles' fracture of right radius, initial encounter for closed fracture (principal)

== ENCOUNTER 2021-02-09 13:08 | Outpatient (CLI) | payer OTHER ==
[2021-02-09 18:11] LABS: CALCIUM 9.6 mg/dL (8.5-10.3); CREATININE 1.1 mg/dL (0.6-1.2); POTASSIUM 4.5 mmol/L (3.5-5.0)
[2021-02-09 18:38] LABS: MICROALBUM/CREATININE RATIO,UR 184.3 ug/mg (<30.0)
[2021-02-09 20:39] LABS: ESTIMATED AVERAGE GLUCOSE 146 mg/dL (70-100); HEMOGLOBIN A1c% 6.7 % (4.27-6.07)
== END 2021-02-09 23:59 | disposition home or self-care (01) ==
LOC: LAB.WCP 13:08
PROVIDERS: ATTEND Family Medicine
DX: E11.65 Type 2 diabetes mellitus with hyperglycemia (principal); I10 Essential (primary) hypertension
CPT/HCPCS: 36415; 80048; 82043; 82570; 83036

== ENCOUNTER 2021-09-21 13:22 | Outpatient (CLI) | payer OTHER ==
[2021-09-21 17:51] LABS: BASOPHILS # (AUTO) 0.1 10^3/uL (0.0-0.1); BASOPHILS % (AUTO) 1.4 %; EOSINOPHILS # (AUTO) 0.3 10^3/uL (0.0-0.7); EOSINOPHILS % (AUTO) 3.6 %; HCT - HEMATOCRIT 36.9 % (42.0-52.0); HGB - HEMOGLOBIN 12.3 g/dL (14.0-18.0); LYMPHOCYTES # (AUTO) 1.3 10^3/uL (1.5-3.5); LYMPHOCYTES % (AUTO) 15.6 %; MEAN CORPUSCULAR HGB CONC 33.3 g/dL (32.0-36.0); MEAN CORPUSCULAR VOLUME 101.9 fL (80.0-94.0); MEAN PLATELET VOLUME 10.6 fL (7.4-11.4); MONOCYTES # (AUTO) 0.8 10^3/uL (0.0-1.0); MONOCYTES % (AUTO) 9.5 %; NEUTROPHILS # (AUTO) 5.8 10^3/uL (1.5-6.6); NEUTROPHILS % (AUTO) 69.4 %; PLT - PLATELET COUNT 186 10^3/uL (130-450); RED BLOOD COUNT 3.62 10^6/uL (4.70-6.10); RED CELL DISTRIBUTION WIDTH 12.5 % (12.0-15.0); WHITE BLOOD COUNT 8.3 x10^3/uL (4.8-10.8)
[2021-09-21 18:09] LABS: ALBUMIN 3.8 g/dL (3.2-5.5); ALBUMIN/GLOBULIN RATIO 1.2 (1.0-2.2); ALKALINE PHOSPHATASE 149 IU/L (42-121); ALT ALANINE AMINOTRANSFERASE 50 IU/L (10-60); AST ASPARTATE AMINOTRANSFERASE 101 IU/L (10-42); BUN - BLOOD UREA NITROGEN 13 mg/dL (6-20); CALCIUM 8.9 mg/dL (8.5-10.3); CARBON DIOXIDE - CO2 24 mmol/L (21-32); CHLORIDE 105 mmol/L (101-111); CHOL/HDL RATIO 3.9 (<5.0); CHOLESTEROL 216 mg/dL; CREATININE 1.2 mg/dL (0.6-1.2); GFR - MDRD 62 (>89); GLUCOSE 131 mg/dL (70-100); HDL CHOLESTEROL 55 mg/dL; LDL CHOLESTEROL,CALCULATED 103 mg/dL; LDL/HDL RATIO 1.9 (<3.6); POTASSIUM 4.9 mmol/L (3.5-5.0); SODIUM 140 mmol/L (135-145); TOTAL PROTEIN 7.1 g/dL (6.7-8.2); TRIGLYCERIDES 292 mg/dL; VLDL CHOLESTEROL 58 mg/dL
[2021-09-21 18:23] LABS: THYROID STIMULATING HORMONE 2.97 uIU/mL (0.34-5.60)
[2021-09-21 20:59] LABS: ESTIMATED AVERAGE GLUCOSE 154 mg/dL (70-100)
== END 2021-09-21 13:23 | disposition home or self-care (01) ==
LOC: LAB.N 13:22
PROVIDERS: ATTEND Family Medicine
DX: I12.9 Hypertensive chronic kidney disease with stage 1 through stage 4 chronic kidney disease, or unspecified chronic kidney disease (principal); E11.22 Type 2 diabetes mellitus with diabetic chronic kidney disease; N18.31 Chronic kidney disease, stage 3a; E11.65 Type 2 diabetes mellitus with hyperglycemia; E78.2 Mixed hyperlipidemia
CPT/HCPCS: 36415; 80053; 80061; 82043; 82570; 83036; 83721; 84443; 85025

== ENCOUNTER 2021-09-22 08:00 | Outpatient (CLI) | payer OTHER ==
[2021-09-22 18:16] LABS: CREATININE,URINE 119.5 mg/dL; MICROALBUM/CREATININE RATIO,UR 111.3 ug/mg (<30.0); MICROALBUMIN,URINE 13.3 mg/dL (0-300.0)
== END 2021-09-22 08:01 | disposition home or self-care (01) ==
LOC: LAB.R 08:00
PROVIDERS: ATTEND Family Medicine
DX: I12.9 Hypertensive chronic kidney disease with stage 1 through stage 4 chronic kidney disease, or unspecified chronic kidney disease (principal); E11.22 Type 2 diabetes mellitus with diabetic chronic kidney disease; N18.31 Chronic kidney disease, stage 3a; E11.65 Type 2 diabetes mellitus with hyperglycemia; E78.2 Mixed hyperlipidemia
CPT/HCPCS: 82043; 82570

== ENCOUNTER 2023-01-27 07:44 | Outpatient (CLI) | payer OTHER | END 2023-01-27 07:45 | disposition short-term general hospital (02) | LOC: EMS 07:44 | DX: R41.0 Disorientation, unspecified (principal); R11.2 Nausea with vomiting, unspecified; R20.0 Anesthesia of skin | CPT/HCPCS: A0425; A0427 ==